=== PATIENT | male | born 1975 | race Caucasian/White ===

== ENCOUNTER 2017-06-02 09:31 | Observation (INO) | payer OTHER ==
[2017-06-02 09:41] VITALS: BMI 35.9
[2017-06-02] MEDS ORDERED: Iohexol 240 (50 ml) PO ONE (10:06)
[2017-06-02] MEDS ORDERED: Sodium Chloride 0.9% 1,000 ML IV STA (10:06)
--- NOTE | 2017-06-02 10:09 | ED PDOC ---
HPI: Abdomen Time Seen by Provider: 06/02/17 10:02 Chief Complaint (Nursing): Abdominal Pain Chief Complaint (Provider): Abd pain History Per: Patient History/Exam Limitations: no limitations Onset/Duration Of Symptoms: Days (yesterday) Outside of [place] travel?: No Current Symptoms Are (Timing): Still Present Location Of Pain/Discomfort: LLQ Additional Complaint(s): Pt. with lower back pain and right lower back pain. Constant and sharp. Started suddenly. No nausea, vomit, diarrhea, weakness, headaches, cough, dizziness. No new food, drinks, etoh. No testicular pain or dysuria. Past Medical History Reviewed: Nursing Documentation, Vital Signs Vital Signs: Last Vital Signs Temp 97.7 F 06/02/17 09:41 Pulse 90 06/02/17 09:41 Resp 20 06/02/17 09:41 BP 137/84 06/02/17 09:41 Pulse Ox 99 06/02/17 10:11 - Medical History PMH: No Chronic Diseases - Surgical History Other surgeries: lap band - Family History Family History: States: Unknown Family Hx - Living Arrangements Living Arrangements: With Family - Social History Current smoker - smoking cessation education provided: No Alcohol: None Drugs: Denies - Allergies Allergies/Adverse Reactions: Allergies Allergy/AdvReac Type Severity Reaction Status Date / Time No Known Allergies Allergy Verified 06/02/17 09:49 Review of Systems ROS Statement: Except As Marked, All Systems Reviewed And Found Negative Gastrointestinal: Positive for: Abdominal Pain Musculoskeletal: Positive for: Back Pain Physical Exam - Reviewed Nursing Documentation Reviewed: Yes Vital Signs Reviewed: Yes - Physical Exam Appears: Positive for: Non-toxic, No Acute Distress Head Exam: Positive for: ATRAUMATIC, NORMAL INSPECTION, NORMOCEPHALIC Skin: Positive for: Normal Color, Warm, DRY Eye Exam: Positive for: EOMI, Normal appearance, PERRL ENT: Positive for: Normal ENT Inspection Neck: Positive for: Normal, Painless ROM Cardiovascular/Chest: Positive for: Regular Rate, Rhythm Respiratory: Positive for: CNT, Normal Breath Sounds Gastrointestinal/Abdominal: Positive for: Bowel Sounds, Soft, Tenderness (LLQ) Back: Positive for: Other (L lower backwinder mild). Negative for: L CVA Tenderness, R CVA Tenderness Extremity: Positive for: Normal ROM. Negative for: Tenderness, Pedal Edema Neurologic/Psych: Positive for: Alert, Oriented - Laboratory Results Result Diagrams: 06/02/17 10:20 06/02/17 10:20 Interpretation Of Abn Labs: 18.1 wbc; cr 1.4 - ECG O2 Sat by Pulse Oximetry: 99 Pulse Ox Interpretation: Normal - Progress ED Course And Treament: [id number] left hydroureteronephrosis caused by a proximal left ureteral calculus lodged in the L3 level though left ureter measuring 7.8 x 6.9 x 10.3 mm and 2 punctate intrarenal calculi 1423: Stable. Spoke with Dr. Reid. Wants pt. to be admitted. Possible empiric tx for pyelonephritis. Spoke with Dr. Gaspar. Will admit. Will give further orders when pt. reaches floor. Disposition - Clinical Impression Clinical Impression: Pyelonephritis, Ureteral stone with hydronephrosis - Patient ED Disposition Is Patient to be Admitted: Yes Counseled Patient/Family Regarding: Studies Performed, Diagnosis - Disposition Disposition Time: 14:00 Condition: FAIR - Pt Status Changed To: Hospital Disposition Of: Observation - POA Present On Arrival: None
[2017-06-02] MEDS ORDERED: Iohexol 240 (50 ml) ONE (10:23)
[2017-06-02 10:29] LABS: BASO % 0.2 % (0.0-2.0); HEMATOCRIT 50.3 % (35.0-51.0); LYMPH % 5.6 % (20.0-40.0); MEAN CELL VOLUME 84.3 fl (80.0-94.0); MEAN CORPUSCULAR HGB CONC 33.2 g/dL (33.0-37.0); MEAN PLATELET VOLUME 8.6 fl (7.2-11.7); MONO # 1.3 K/uL (0.0-0.8); MONO % 6.9 % (0.0-10.0); NEUT # 15.8 K/uL (1.8-7.0); NEUT % 87.3 % (50.0-75.0); NRBC % 0.1 % (0.0-0.0); PLATELET COUNT 250 K/uL (130-400); RED CELL DISTRIBUTION WIDTH 13.6 % (11.5-14.5); WHITE BLOOD COUNT 18.1 K/uL (4.8-10.8)
[2017-06-02 10:44] LABS: ALB/GLOB RATIO 1.4 (1.0-2.1); ALKALINE PHOSPHATASE 58 U/L (38-126); ALT/SGPT 33 U/L (21-72); AST/SGOT 22 U/L (17-59); BILIRUBIN,TOTAL 1.1 mg/dl (0.2-1.3); BLOOD UREA NITROGEN 15 mg/dl (9-20); CALCIUM 9.4 mg/dL (8.4-10.2); CARBON DIOXIDE 19 mmol/L (22-30); CHLORIDE 108 mmol/L (98-107); GFR AFRICAN-AMERICAN > 60; GLUCOSE,RANDOM 123 mg/dL (75-110); LIPASE 53 U/L (23-300); SODIUM 139 mmol/l (132-148); TOTAL PROTEIN 7.9 G/DL (6.3-8.2)
[2017-06-02 11:34] LABS: NEUTROPHIL 92 % (42-75); TOTAL CELLS COUNTED 100
[2017-06-02] MEDS ORDERED: Sodium Chloride 0.9% 100 ML ONE (12:44)
[2017-06-02] MEDS ORDERED: Iohexol 300 100 ML IJ ONE (12:44)
--- NOTE | 2017-06-02 14:01 | CT ---
PROCEDURE: CT Abdomen and Pelvis with contrast HISTORY: abd pain COMPARISON: None. TECHNIQUE: Contrast dose: Omnipaque 300, 95 cc. Radiation dose: Total exam DLP = 1386.21 mGy-cm. This CT exam was performed using one or more of the following dose reduction techniques: Automated exposure control, adjustment of the mA and/or kV according to patient size, and/or use of iterative reconstruction technique. FINDINGS: LOWER THORAX: The esophagus appears moderately dilated with air and trace fluid with thickened wall which may reflect hypertrophy. The patient is status post Lap band surgery which is likely related. Clinically correlate. LIVER: Mild diffuse fatty infiltration liver is appreciate without focal mass or intrahepatic biliary duct dilatation identified. GALLBLADDER AND BILE DUCTS: Unremarkable. PANCREAS: Unremarkable. No gross lesion or ductal dilatation. SPLEEN: Unremarkable. ADRENALS: Unremarkable. No mass. KIDNEYS AND URETERS: [id number] left hydroureteronephrosis caused by a proximal left ureteral calculus lodged in the L3 level though left ureter measuring 7.8 x 6.9 x 10.3 mm 2 punctate intrarenal calculi are identified at the upper mid and lower pole left kidney which are nonobstructive. 2-3 punctate mid to lower pole right renal calculi are nonobstructive. The right ureter appears unremarkable in images through the urinary bladder are unremarkable as well. VASCULATURE: Unremarkable. No aortic aneurysm. BOWEL: Prior Lap band surgery with the stomach otherwise unremarkable. . No obstruction. No gross mural thickening. APPENDIX: Normal appendix. PERITONEUM: Unremarkable. No free fluid. No free air. LYMPH NODES: Unremarkable. No enlarged lymph nodes. REPRODUCTIVE: Unremarkable. BONES: Relatively advanced thoracic spondylosis is appreciated primarily at the mid to inferior thoracic spine. No fracture or spondylolisthesis. No destructive bony lesion appreciable throughout the abdomen or pelvis bony anatomy. OTHER FINDINGS: None. IMPRESSION: 1. [id number]-[id number] left hydroureteronephrosis caused by a proximal left ureteral calculus measuring just under 8 mm greatest transverse dimension (10 mm parallel to the axis of the left ureter). Limited left perinephric reaction is appreciated and prominence of the left kidney. Bilateral infrequent punctate intrarenal calculi are identified which are nonobstructive. 2. Mild diffuse fatty infiltration of liver. 3. Prior lap band surgery identified with likely related thickening of the distal esophagus which is also mildly distended with retained air and fluid.
[2017-06-02] MEDS ORDERED: cefTRIAXone (Rocephin) 1 gm Inj IV STA (14:19)
[2017-06-02] MEDS ORDERED: cefTRIAXone IV 1 gm in Dextros 50 ML IVPB ONE ×2 (14:30→15:16)
[2017-06-02 15:12] LABS: RBC URINE 15 /hpf (0-3); URINE BILIRUBIN NEGATIVE (NEGATIVE); URINE BLOOD SMALL (NEGATIVE); URINE COLOR YELLOW (YELLOW); URINE GLUCOSE (UA) NEG (Normal); URINE KETONE NEGATIVE (NEGATIVE); URINE LEUKOCYTE ESTERASE NEG Leu/uL (Negative); URINE PROTEIN NEGATIVE (NEGATIVE); URINE UROBILINOGEN 0.2-1.0 mg/dL (0.2-1.0); WBC URINE 3 /hpf (0-5)
[2017-06-02 15:36] LABS: VENOUS BLOOD GAS BASE EXCESS -3.6 mmol/L (0.0-2.0); VENOUS BLOOD GAS PCO2 52 mmHg (40-60); VENOUS BLOOD PH 7.27 (7.32-7.43)
--- NOTE | 2017-06-02 16:28 | RAD ---
HISTORY: stone eval COMPARISON: June 02, 2017. FINDINGS: BOWEL: Normal. No obstruction. No free air. BONES: Normal. OTHER FINDINGS: In mid left ureteral calculus. The finding is marked on the study for review. Delayed nephrogram on the left related to high-grade obstruction. Distal left ureter beyond the stone appears to be of normal caliber and course IMPRESSION: Obstructing calculus left ureter which conforms to findings on recent CT scan.
[2017-06-02] MEDS ORDERED: Sodium Chloride 0.9% 1,000 ML IV SCH (17:45)
--- NOTE | 2017-06-02 18:16 | CP.PCM.HP ---
History of Present Illness - History of Present Illness History of Present Illness: A 42 year old male was admitted for left side abdominal pain which started two days ago. The pain got worse last night and escalated exponentially. He denies fever, chills or nausea or hematuria or dysuria. He arrived at ER at 8 O'clock this morning. He has hypertension, attention deficit disorder and insomnia and he takes 5/ 6.25 mg of bisoprolol, ambien, adderall and Adipax as needed. He had a bariatric surgery, lap band in 2009 by a surgeon in [place] who works in [place] now. He used to weigh 350 pounds before the surgery and now he weighs around 250 pounds. He takes Simethicon when he has bloating or trapped gas in the abdomen. He has a history of laser surgery for an epididymal mass or cyst. He is a homosexual and to a . He denies smoking and drinks alcohol only occasionally. Present on Admission - Present on Admission Any Indicators Present on Admission: No History of DVT/PE: No History of Uncontrolled Diabetes: No Urinary Catheter: No Decubitus Ulcer Present: No Review of Systems - Constitutional Constitutional: absent: Daytime Sleepiness, Excessive Sweating, Weight Loss - Cardiovascular Cardiovascular: absent: Chest Pain - Respiratory Respiratory: absent: Cough - Gastrointestinal Gastrointestinal: Abdominal Pain. absent: Nausea, Vomiting - Genitourinary Genitourinary: Flank Pain. absent: Change in Urinary Stream, Difficulty Urinating, Dysuria, Hematuria, Hx /Renal Surgery Past Patient History - Past Social History Smoking Status: Never Smoked - CARDIAC Hx Cardiac Disorders: No - PULMONARY Hx Respiratory Disorders: No - NEUROLOGICAL Hx Neurological Disorder: No - HEENT Hx HEENT Problems: Yes - RENAL Hx Chronic Kidney Disease: No - ENDOCRINE/METABOLIC Hx Endocrine Disorders: No - HEMATOLOGICAL/ONCOLOGICAL Hx Blood Disorders: No - INTEGUMENTARY Hx Dermatological Problems: No - MUSCULOSKELETAL/RHEUMATOLOGICAL Hx Falls: No - GENITOURINARY/GYNECOLOGICAL Hx Genitourinary Disorders: No - PSYCHIATRIC Hx Psychophysiologic Disorder: Yes - SURGICAL HISTORY Hx Surgeries: Yes Other/Comment: Lapband - ANESTHESIA Hx Anesthesia: Yes Hx Anesthesia Reactions: No Meds Allergies/Adverse Reactions: Allergies Allergy/AdvReac Type Severity Reaction Status Date / Time No Known Allergies Allergy Verified 06/02/17 09:49 Physical Exam - Constitutional Appears: No Acute Distress - Respiratory Exam Respiratory Exam: Clear to Auscultation Bilateral. absent: Wheezes - Cardiovascular Exam Cardiovascular Exam: REGULAR RHYTHM. absent: Systolic Murmur - GI/Abdominal Exam GI & Abdominal Exam: Normal Bowel Sounds, Soft, Tenderness (mild diffuse on left lower) Results - Vital Signs Recent Vital Signs: Last Vital Signs Temp 97.8 F 06/02/17 16:36 Pulse 92 H 06/02/17 16:36 Resp 20 06/02/17 16:36 BP 133/84 06/02/17 16:36 Pulse Ox 97 06/02/17 16:36 - Labs Result Diagrams: 06/02/17 10:20 06/02/17 10:20 Labs: Laboratory Results - last 24 hr 06/02/17 06/02/17 06/02/17 10:20 10:20 15:00 WBC 18.1 H RBC 5.97 H Hgb 16.7 Hct 50.3 MCV 84.3 MCH 28.0 MCHC 33.2 RDW 13.6 Plt Count 250 MPV 8.6 Neut % (Auto) 87.3 H Lymph % (Auto) 5.6 L [place] % (Auto) 6.9 Eos % (Auto) 0.0 Baso % (Auto) 0.2 Neut # 15.8 H Lymph # 1.0 [place] # 1.3 H Eos # 0.0 Baso # 0.0 Neutrophils % (Manual) 92 H Band Neutrophils % 2 Lymphocytes % (Manual) 3 L Monocytes % (Manual) 3 Platelet Estimate Normal RBC Morphology Normal pO2 VBG pH VBG pCO2 VBG HCO3 VBG Total CO2 VBG O2 Sat (Calc) VBG Base Excess VBG Potassium Glucose Lactate FiO2 Sodium 139 Potassium 4.0 Chloride 108 H Carbon Dioxide 19 L Anion Gap 16 BUN 15 Creatinine 1.4 Est GFR ( Amer) > 60 Est GFR (Non-Af Amer) 56 Random Glucose 123 H Calcium 9.4 Total Bilirubin 1.1 AST 22 ALT 33 Alkaline Phosphatase 58 Total Protein 7.9 Albumin 4.6 Globulin 3.3 Albumin/Globulin Ratio 1.4 Lipase 53 Venous Blood Potassium Urine Color Yellow Urine Clarity Cloudy Urine pH 8.0 Ur Specific [place] 1.016 Urine Protein Negative Urine Glucose (UA) Neg Urine Ketones Negative Urine Blood Small Urine Nitrate Negative Urine Bilirubin Negative Urine Urobilinogen 0.2-1.0 Ur Leukocyte Esterase Neg Urine RBC (Auto) 15 H Urine Microscopic WBC 3 12/05/17 15:30 WBC RBC Hgb Hct MCV MCH MCHC RDW Plt Count MPV Neut % (Auto) Lymph % (Auto) [place] % (Auto) Eos % (Auto) Baso % (Auto) Neut # Lymph # [place] # Eos # Baso # Neutrophils % (Manual) Band Neutrophils % Lymphocytes % (Manual) Monocytes % (Manual) Platelet Estimate RBC Morphology pO2 21 L VBG pH 7.27 L VBG pCO2 52 VBG HCO3 20.2 VBG Total CO2 25.5 VBG O2 Sat (Calc) 38.3 L VBG Base Excess -3.6 L VBG Potassium 3.9 Glucose 92 Lactate 0.7 FiO2 21.0 Sodium 136.0 Potassium Chloride 105.0 Carbon Dioxide Anion Gap BUN Creatinine Est GFR ( Amer) Est GFR (Non-Af Amer) Random Glucose Calcium Total Bilirubin AST ALT Alkaline Phosphatase Total Protein Albumin Globulin Albumin/Globulin Ratio Lipase Venous Blood Potassium 3.9 Urine Color Urine Clarity Urine pH Ur Specific [place] Urine Protein Urine Glucose (UA) Urine Ketones Urine Blood Urine Nitrate Urine Bilirubin Urine Urobilinogen Ur Leukocyte Esterase Urine RBC (Auto) Urine Microscopic WBC Assessment & Plan - Assessment and Plan (Free Text) Assessment: acute pyelonephritis left ureteral stone Plan: iv antibiotics, Rocephin. blood and urine culture a urology consult pain control iv hydration. - Date & Time Date: 06/02/17 Time: 18:18 Decision To Admit - Pt Status Changed To: Hospital Disposition Of: Inpatient - Admit Certification Admit to Inpatient:: After my assessment, the patient will require hospitalization for at least two midnights. This is because of the severity of symptoms shown, intensity of services needed, and/or the medical risk in this patient being treated as an outpatient. - . Bed Request Type: Med/Surg Admitting Physician: Tom Gaspar
[2017-06-03 07:37] LABS: BASO % 0.4 % (0.0-2.0); EOS # 0.1 K/uL (0.0-0.7); EOS % 0.7 % (0.0-4.0); HEMATOCRIT 45.3 % (35.0-51.0); LYMPH # 1.4 K/uL (1.0-4.3); LYMPH % 12.6 % (20.0-40.0); MEAN CELL VOLUME 85.4 fl (80.0-94.0); MEAN CORPUSCULAR HEMOGLOBIN 28.1 pg (27.0-31.0); MEAN CORPUSCULAR HGB CONC 32.9 g/dL (33.0-37.0); MEAN PLATELET VOLUME 8.5 fl (7.2-11.7); MONO # 1.3 K/uL (0.0-0.8); MONO % 11.6 % (0.0-10.0); NEUT % 74.7 % (50.0-75.0); RED CELL DISTRIBUTION WIDTH 13.8 % (11.5-14.5); WHITE BLOOD COUNT 10.8 K/uL (4.8-10.8)
[2017-06-03 07:44] LABS: CALCIUM 8.4 mg/dL (8.4-10.2); POTASSIUM 3.9 MMOL/L (3.6-5.0)
[2017-06-03] MEDS ORDERED: cefTRIAXone IV 1 gm in Dextros 50 ML IVPB SCH (09:00)
[2017-06-03] MEDS ORDERED: HCTZ PO SCH (09:00)
[2017-06-03] MEDS ORDERED: BISOPROLOL PO SCH (09:00)
[2017-06-03] MEDS ORDERED: Enoxaparin 40 mg Syringe SC SCH (09:00)
[2017-06-03] MEDS ORDERED: Chlorhexidine Gluconate 1 APPL/PKT TP ONE (10:44)
[2017-06-03] MEDS ORDERED: Iohexol 240 200 ML ONE (11:58)
[2017-06-03] MEDS ORDERED: Lidocaine 2% Jelly (Uro-Jet) ONE (11:58)
[2017-06-03] MEDS ORDERED: cefTRIAXone IV 1 gm in Dextros 0 ML IVPB ONE (11:58)
[2017-06-03] MEDS ORDERED: Propofol 10 mg/ml Inj (20 ML) ONE ×2 (11:58→12:47)
[2017-06-03] MEDS ORDERED: Midazolam 2 MG/2 ML VIAL ONE (11:59)
[2017-06-03] MEDS ORDERED: Lidocaine 2% MPF (5 ml) Inj ONE (12:02)
[2017-06-03] MEDS ORDERED: Sodium Chloride 0.9% 1,000 ML IV ONE (12:12)
[2017-06-03] MEDS ORDERED: HYDROmorphone 0.5 mg/0.5 ml ISec IVP PRN (13:06)
--- NOTE | 2017-06-03 14:28 | RAD ---
PROCEDURE: Intraoperative Fluoroscopy. HISTORY: CYSTOSCOPY FINDINGS: Fluoroscopic assistance was provided for cystoscopy. Please refer to
[2017-06-03 14:29] VITALS: TEMP 97.6; O2SAT 100
[2017-06-03 17:00] VITALS: BP 142/95; PULSE 76; RESP 18
--- NOTE | 2017-06-03 18:37 | CP.PCM.PN ---
Subjective - Date & Time of Evaluation Date of Evaluation: 06/03/17 Time of Evaluation: 18:35 - Subjective Subjective: less abdominal pain no dysuria today he got a left ureteral stent by a urologist constipation, no BM for the last four days Objective - Vital Signs/Intake and Output Vital Signs (last 24 hours): Temp Pulse Resp BP Pulse Ox 97.6 F 76 18 142/95 H 100 06/03/17 16:59 06/03/17 16:59 06/03/17 16:59 06/03/17 16:59 06/03/17 16:59 Intake and Output: 06/03/17 06/03/17 06:59 18:59 Intake Total 500 Output Total 200 Balance 300 - Medications Medications: Current Medications Bisoprolol Fumarate (Zebeta) 5 mg PO DAILY [facility] Last Admin: 06/03/17 09:47 Dose: 5 mg Enoxaparin Sodium (Lovenox) 40 mg SC DAILY [facility] PRN Reason: Protocol Last Admin: 06/03/17 09:44 Dose: 40 mg Hydrochlorothiazide (Hydrodiuril) 6.25 mg PO DAILY [facility] Last Admin: 06/03/17 09:46 Dose: 6.25 mg Ceftriaxone Sodium (Rocephin Iv 1 Gm Duplex) 50 mls @ 50 mls/hr IVPB DAILY [facility] PRN Reason: Protocol Last Admin: 06/03/17 09:44 Dose: 50 mls/hr Ketorolac Tromethamine (Toradol) 15 mg IVP Q6 PRN PRN Reason: Pain, severe (8-10) Last Admin: 06/03/17 06:42 Dose: 15 mg Zolpidem Tartrate (Ambien) 5 mg PO HS [facility] Last Admin: 06/02/17 22:34 Dose: 5 mg - Labs Labs: 06/03/17 06:45 06/03/17 06:45 - Constitutional Appears: No Acute Distress - Respiratory Exam Respiratory Exam: Clear to Ausculation Bilateral - Cardiovascular Exam Cardiovascular Exam: REGULAR RHYTHM. absent: Murmur Assessment and Plan - Assessment and Plan (Free Text) Assessment: left ureteral stone kidney stones acute pyelonephritis ureteral stent placement left Plan: as per the urologist, planning lithotripsy as an out patient meanwhile po antibiotics with cefuroxime 500 mg bid lactulose for constipation urologist cleared him for discharge home
--- NOTE | 2017-06-03 23:33 | OP ---
PROCEDURE DATE: 06/03/2017 PREOPERATIVE DIAGNOSES: Left renal colic, left obstructing proximal 8 mm x 10 mm ureteral stone with left hydronephrosis, acute renal insufficiency and possible left pyelonephritis. PROCEDURE: Cystoscopy and insertion of left ureteral stent. SURGEON: Neal Reid MD. TYPE OF ANESTHESIA: Deep IV sedation. ANESTHESIA ADMINISTERED BY: Dr. Servin. DESCRIPTION OF PROCEDURE: Patient was placed on a cystoscopy table in the dorsal lithotomy position, prepped and draped in the usual sterile fashion with Betadine solution under IV sedation. Approximately 10 mL of 2% Xylocaine jelly was injected intraurethral and allowed to be maintained for a few minutes followed by insertion of a #21 Hebrew Olympus cystoscope into the bladder under direct vision using the 30-degree lens. Sterile water was used as the irrigating solution throughout the entire procedure. The anterior urethra was completely normal without any strictures, formation, foreign bodies or suspicious lesions seen. Posterior urethra showed a minimally-occlusive lateral lobe prostatic hypertrophy with a total prosthetic length of about 3 cm and the bladder neck with measurement of about 2 cm. The bladder was examined in all 4 quadrants. There were no foreign bodies or suspicious lesions seen in the bladder, no evidence of any bladder malignancy. The bladder mucosa appeared to be less than 1+ trabeculated. Both ureteral orifices were in normal location, normal configuration on the trigone with clear efflux on the right and diminished efflux from the left. Next using a Microvasive 150 cm 0.035-inch Sensor wire, the Sensor wire was easily passed into the left ureteral orifice and under direct vision and fluoroscopic control, was passed up to the area of the left renal pelvis beyond the level of the stone, which was at L3 and easily visualized. With at least one coil in the left renal pelvis, a #6Fr Hebrew Microvasive Contour VL multi-length 22 cm to 32 cm stent was placed over the Sensor wire and passed into the bladder and into the left ureteral orifice and then up to the area of the left renal pelvis beyond the obstructing stone under direct vision and fluoroscopic control with at least two coils seen in the left renal pelvis and the end of the stent seen in the bladder. The Sensor wire was removed and at least more than one coil was seen in the bladder. At the end of the procedure, the bladder was emptied of all irrigating solution. The cystoscope was removed. The patient tolerated the procedure well with less than 5 mL of blood loss and was brought to the recovery area in satisfactory condition. Plan for this patient will be to maintain the patient on his IV antibiotics, which now includes Rocephin during his remainder of this hospital stay which may end today and the patient can be discharged home on Ceftin 500 mg b.i.d. for 10 days. Patient will be scheduled for left proximal ureteral ESWL at the [facility] in [place] on 06/05/2017 at 12:00 noon. Neal Reid MD cc: *------* MTDD
--- NOTE | 2017-06-04 08:44 | CON ---
DATE: 06/03/2017 COMPREHENSIVE UROLOGIC CONSULTATION TIME OF CONSULTATION: Roughly 10:15 a.m. DIAGNOSES: 1. Left renal colic. 2. Urosepsis. 3. Left hydronephrosis. 4. Renal stones. 5. Obstructing proximal 8 x 10 mm left ureteral stone. BRIEF HISTORY: The patient is a 42-year-old sexually active obese male status post bariatric surgery for obesity with a history of ADHD and insomnia and some mild hypertension, who presents with acute onset of left renal colic, first episode was on 06/02/2017 requiring him to come to [facility] Emergency Room, where an abdominopelvic CT showed bilateral non-obstructing renal stones and a proximal left 8 x 10 mm obstructing ureteral stone with left hydronephrosis. The patient had to be admitted secondary to an elevated white count of over 18,000 and was started on Rocephin IV from the ER with an excellent response, with his white count now down to around 10,000, today 06/03/2017. However, the patient still has left renal colic, on Toradol for pain control. This is his first episode of kidney stones. He has no other history of any kidney disease. No history of cancer or family history of cancer. No other medical problems. The patient currently is being scheduled for cystoscopy and insertion of left ureteral stent, which will be followed by left upper ureteral ESWL, to be done at [facility] in [place]. PAST SURGICAL HISTORY: The patient's only past surgical history was bariatric surgery for obesity. SOCIAL HISTORY: He has no history of any tobacco use and is just a rare social drinker. ALLERGIES: HE HAS NO KNOWN ALLERGIES TO ANY MEDICATIONS. PHYSICAL EXAMINATION: GENERAL: The patient is a well-developed, well-nourished male. He is alert. He is oriented. HEENT: Grossly within normal limits. NECK: Supple. Thyroid not palpable. LUNGS: Clear. ABDOMEN: Soft, not distended. No right CVA tenderness. A 2+ left CVA tenderness, on Toradol. GENITALIA: Testicles are down bilaterally, nontender. RECTAL: Normal rectal tone without fluctuance or masses. Prostate is average sized, smooth, symmetrical, and nontender without nodules or indurations with a palpable median sulcus. EXTREMITIES: The patient has full range of motion of both upper and lower extremities without limitations. LABORATORY EVALUATION: On admission, WBC count was 18.1. Today, 06/03/2017, showed a CBC with WBC count of 10.8, on IV Rocephin. Hemoglobin was 14.9, hematocrit 45.3, and platelet count was 207,000. His chem profile shows a sodium of 142, potassium 3.9, chloride 112, CO2 of 21, BUN and creatinine of 15 and 1.9 respectively, indicating acute chronic renal insufficiency and is another reason for cystoscopy with insertion of left ureteral stent. His GFR on admission was 56 and is now 39. Calcium is 8.4. Urinalysis on admission, 06/02/2017, was positive for small blood with 15 rbc's and 3 wbc's per high-power field. Urine culture and sensitivity is pending. DIAGNOSTIC IMPRESSION: 1. Probable left pyelonephritis, responding very well to IV Rocephin. 2. Bilateral non-obstructing nephrolithiasis. 3. Left hydronephrosis secondary to obstructing left proximal ureteral calculus. 4. Left ureteral calculus, 8 x 10 mm, proximal. 5. Left renal colic. 6. Acute renal insufficiency with glomerular filtration rate of 39. PLAN: To schedule the patient for emergency cystoscopy, insertion of left ureteral stent. The patient was medically cleared for this procedure. Neal Reid MD
== END 2017-06-03 19:15 | disposition home or self-care (01) ==
LOC: H.ER 09:31 → H.ERHOLD 14:26 → H.MEDSURG1 15:56
PROVIDERS: ADMIT Internal Medicine; ATTEND Internal Medicine
DX: N13.6 Pyonephrosis (principal); E66.9 Obesity, unspecified; Z68.35 Body mass index [BMI] 35.0-35.9, adult; Z98.84 Bariatric surgery status; G47.00 Insomnia, unspecified; I10 Essential (primary) hypertension; F90.9 Attention-deficit hyperactivity disorder, unspecified type; K59.00 Constipation, unspecified; N28.9 Disorder of kidney and ureter, unspecified
CPT/HCPCS: 36415; 52332; 74000; 74177; 80048; 80053; 81003; 82803; 83690; 85025; 87040; 87086; 96361; 96372; 96374; 96375; 96376; 99284; C1769; C2617; G0378; J0696; J1650; J1885; J2250; J2704; J3010; J7040; Q9966; Q9967